=== PATIENT | male | born 2005 | race African-American/Black ===

== ENCOUNTER 2023-11-24 17:44 | Observation (INO) | payer OTHER ==
--- NOTE | 2023-11-24 18:17 | ED ---
Syncope HPI - General Stated Complaint: Dizziness Time Seen by Provider: 11/24/23 17:49 Source: RN notes reviewed, old records reviewed Mode of arrival: EMS Limitations: no limitations, language barrier - History of Present Illness Initial Comments: This is a 17-year-old male patient does not speak Taiwanese as a first language and coming in today with a severe syncopal event lightheadedness dizziness and multiple syncopal events while playing soccer today. Patient has had prior evaluation, patient states has had around 20 episodes of syncope in his life with no acute cause patient is here playing soccer for college, he has been here for a few months MD Complaint: loss of consciousness, collapsed (Multiple episodes of syncope) -: minutes(s) Prodromal Symptoms: none -: minutes(s) Witnessed: yes - by bystander, yes - by EMS Injuries Sustained Associated with Event: None Current Symptoms: lightheaded History: previous syncopal episode Context: during exertion - Related Data Home Medications Medication Instructions Recorded Confirmed No Known Home Medications 11/24/23 11/24/23 Allergies Allergy/AdvReac Type Severity Reaction Status Date / Time No Known Allergies Allergy Verified 11/24/23 19:27 Review of Systems ROS Statement: Those systems with pertinent positive or pertinent negative responses have been documented in the HPI. ROS Other: All systems not noted in ROS Statement are negative. General Exam General appearance: alert, in no apparent distress Head exam: Present: atraumatic, normocephalic, normal inspection Eye exam: Present: normal appearance, PERRL, EOMI. Absent: scleral icterus, conjunctival injection, periorbital swelling ENT exam: Present: normal exam, mucous membranes moist Neck exam: Present: normal inspection. Absent: tenderness, meningismus, lymphadenopathy Respiratory exam: Present: normal lung sounds bilaterally. Absent: respiratory distress, wheezes, rales, rhonchi, stridor Cardiovascular Exam: Present: regular rate, normal rhythm, normal heart sounds. Absent: systolic murmur, diastolic murmur, rubs, gallop, clicks GI/Abdominal exam: Present: soft, normal bowel sounds. Absent: distended, tenderness, guarding, rebound, rigid Extremities exam: Present: normal inspection, full ROM, normal capillary refill. Absent: tenderness, pedal edema, joint swelling, calf tenderness Back exam: Present: normal inspection Neurological exam: Present: alert, oriented X3, CN II-XII intact Psychiatric exam: Present: normal affect, normal mood Skin exam: Present: warm, dry, intact, normal color. Absent: rash Course Vital Signs 11/24/23 11/24/23 18:16 20:20 Temperature 98.5 F Pulse Rate 72 72 Respiratory 20 14 Rate Blood Pressure 113/62 110/60 O2 Sat by Pulse 100 100 Oximetry - Reevaluation(s) Reevaluation #1: 11/24/23 19:12 Medical records reviewed Reevaluation #2: 11/24/23 19:12 Patient symptoms remain unchanged, no recurrent syncope Reevaluation #3: 11/24/23 19:12 Patient informed of results and questions answered Reevaluation #4: Was pt. sent in by a medical professional or institution ([facility], [facility] [employer], urgent care, hospital, or fci...) When possible be specific @ -no Did you speak to anyone other than the patient for history (EMS, parent, family, police, friend...)? What history was obtained from this source @ -no Did you review nursing and triage notes (agree or disagree)? Why? @ -agree Are old charts reviewed (outside hosp., previous admission, EMS record, old EKG, old radiological studies, urgent care reports/EKG's, fci records)? Report findings @ -yes Differential Diagnosis (chest pain, altered mental status, abdominal pain women, abdominal pain men, vaginal bleeding, weakness, fever, dyspnea, syncope, headache, dizziness, GI bleed, back pain, seizure, CVA, palpatations, mental health, musculoskeletal)? @ -prior EKG interpreted by me (3pts min.). @ -yes X-rays interpreted by me (1pt min.). @ -no CT interpreted by me (1pt min.). @ -no U/S interpreted by me (1pt. min.). @ -no What testing was considered but not performed or refused? (CT, X-rays, U/S, labs)? Why? @ -none What meds were considered but not given or refused? Why? @ -none Did you discuss the management of the patient with other professionals (professionals i.e. [facility], [employer] [employer], lab, RT, psych nurse, social science teacher, maintenance service technician, teacher, special officer, vocational case manager)? Give summary @ -no Was smoking cessation discussed for >3mins.? @ -no Was critical care preformed (if so, how long)? @ -yes31 Were there social determinants of health that impacted care today? How? (Homelessness, low income, unemployed, alcoholism, drug addiction, transportation, low edu. Level, literacy, decrease access to med. care, fci, rehab)? @ -none Was there de-escalation of care discussed even if they declined (Discuss DNR or withdrawal of care, Hospice)? DNR status @ -no What co-morbidities impacted this encounter? (DM, HTN, Smoking, COPD, CAD, Cancer, CVA, ARF, Chemo, Hep., AIDS, mental health diagnosis, sleep apnea, morbi d obesity)? @ -none Was patient admitted / discharged? Hospital course, mention meds given and rout e, prescriptions, significant lab abnormalities, going to OR and other pertinent info. @ - 17 male will be admitted for syncopal evaluation, concern for EKG changes Admitted Undiagnosed new problem with uncertain prognosis? @ -no Drug Therapy requiring intensive monitoring for toxicity (Heparin, Nitro, Insulin, Cardizem)? @ -no Were any procedures done? @ -no Diagnosis/symptom? @ -recurrent syncope Acute, or Chronic, or Acute on Chronic? @ -Acute Uncomplicated (without systemic symptoms) or Complicated (systemic symptoms)? @ -Complicated Side effects of treatment? @ -no Exacerbation, Progression, or Severe Exacerbation? @ -exacerbation Poses a threat to life or bodily function? How? (Chest pain, USA, KS, pneumonia, PE, COPD, DKA, ARF, appy, cholecystitis, CVA, Diverticulitis, Homicidal, Suicidal, threat to staff... and all critical care pts) @ -yes syncope Reevaluation #5: Differential Syncope: Valvular disease, hypertrophic cardiomyopathy, pulmonary embolism, tamponade, tachycardia, bradycardia, KS, hypovolemia, hemorrhage, dissection, anemia, in tracranial hemorrhage, seizure, hypoglycemia, carbon monoxide poisoning, this is not meant to be an all-inclusive list. - Consultations Consultation #1: Spoke with todd who agrees to admit this patient EKG Findings - EKG Comments: EKG Findings:: EKG is sinus 73 [place] 192 QRS 86 QTc 381 - EKG Results: EKG: interpreted by NATALIED Medical Decision Making - Medical Decision Making 17 male will be admitted for syncopal evaluation, concern for EKG changes - Lab Data Result diagrams: 11/26/23 04:38 11/26/23 04:38 Lab Results 11/24/23 11/24/23 11/24/23 Range/Units 18:23 18:23 18:23 WBC 6.8 (4.0-11.0) k/uL RBC 4.75 (4.30-5.90) m/uL Hgb 13.2 (13.0-17.5) gm/dL Hct 43.0 (39.0-53.0) % MCV 90.6 (80.0-100.0) fL MCH 27.9 (25.0-35.0) pg MCHC 30.8 L (31.0-37.0) g/dL RDW 11.7 (11.5-15.5) % Plt Count 240 (150-450) k/uL MPV 7.5 Neutrophils % 74 % Lymphocytes % 14 % Monocytes % 8 % Eosinophils % 2 % Basophils % 0 % Neutrophils # 5.0 (1.3-7.7) k/uL Lymphocytes # 0.9 L (1.0-4.8) k/uL Monocytes # 0.5 (0-1.0) k/uL Eosinophils # 0.2 (0-0.7) k/uL Basophils # 0.0 (0-0.2) k/uL Hypochromasia Slight PT 12.2 (10.0-12.5) sec INR 1.1 (<1.2) APTT 20.1 L (22.0-30.0) sec D-Dimer 0.59 (<0.60) mg/L FEU Sodium 139 (137-145) mmol/L Potassium 4.1 (3.5-5.1) mmol/L Chloride 103 (98-107) mmol/L Carbon Dioxide 25 (22-30) mmol/L Anion Gap 11 mmol/L BUN 8 L (9-20) mg/dL Creatinine 1.15 (0.66-1.25) mg/dL Est GFR (CKD-EPI)AfAm >90 (>60 ml/min/1.73 sqM) Est GFR (CKD-EPI)NonAf >90 (>60 ml/min/1.73 sqM) Glucose 84 (74-99) mg/dL Plasma Lactic Acid Abdulaziz (0.7-2.0) mmol/L Calcium 9.9 (8.4-10.2) mg/dL Phosphorus 3.1 (2.5-4.5) mg/dL Magnesium 1.7 (1.6-2.3) mg/dL Total Bilirubin 2.8 H (0.2-1.3) mg/dL AST 43 (17-59) U/L ALT 24 (4-49) U/L Alkaline Phosphatase 82 (38-126) U/L Troponin I (0.000-0.034) ng/mL NT-Pro-B Natriuret Pep <20 pg/mL Total Protein 7.6 (6.3-8.2) g/dL Albumin 4.6 (3.5-5.0) g/dL TSH 0.607 (0.465-4.680) mIU/L 11/24/23 11/24/23 Range/Units 18:23 18:23 WBC (4.0-11.0) k/uL RBC (4.30-5.90) m/uL Hgb (13.0-17.5) gm/dL Hct (39.0-53.0) % MCV (80.0-100.0) fL MCH (25.0-35.0) pg MCHC (31.0-37.0) g/dL RDW (11.5-15.5) % Plt Count (150-450) k/uL MPV Neutrophils % % Lymphocytes % % Monocytes % % Eosinophils % % Basophils % % Neutrophils # (1.3-7.7) k/uL Lymphocytes # (1.0-4.8) k/uL Monocytes # (0-1.0) k/uL Eosinophils # (0-0.7) k/uL Basophils # (0-0.2) k/uL Hypochromasia PT (10.0-12.5) sec INR (<1.2) APTT (22.0-30.0) sec D-Dimer (<0.60) mg/L FEU Sodium (137-145) mmol/L Potassium (3.5-5.1) mmol/L Chloride (98-107) mmol/L Carbon Dioxide (22-30) mmol/L Anion Gap mmol/L BUN (9-20) mg/dL Creatinine (0.66-1.25) mg/dL Est GFR (CKD-EPI)AfAm (>60 ml/min/1.73 sqM) Est GFR (CKD-EPI)NonAf (>60 ml/min/1.73 sqM) Glucose (74-99) mg/dL Plasma Lactic Acid Abdulaziz 2.6 H* (0.7-2.0) mmol/L Calcium (8.4-10.2) mg/dL Phosphorus (2.5-4.5) mg/dL Magnesium (1.6-2.3) mg/dL Total Bilirubin (0.2-1.3) mg/dL AST (17-59) U/L ALT (4-49) U/L Alkaline Phosphatase (38-126) U/L Troponin I 0.019 (0.000-0.034) ng/mL NT-Pro-B Natriuret Pep pg/mL Total Protein (6.3-8.2) g/dL Albumin (3.5-5.0) g/dL TSH (0.465-4.680) mIU/L Critical Care Time Critical Care Time: Yes Total Critical Care Time: 31 Disposition Clinical Impression: Syncope Disposition: ADMITTED IP TO THIS HOSP Condition: Stable Is patient prescribed a controlled substance at d/c from ED?: No Time of Disposition: 19:10
[2023-11-24 18:50] LABS: Basophils % (A) 0 %; Eosinophils # (A) 0.2 k/uL (0-0.7); Eosinophils % (A) 2 %; HGB 13.2 gm/dL (13.0-17.5); Hypochromasia Slight; Lymphocytes # (A) 0.9 k/uL (1.0-4.8); Lymphocytes % (A) 14 %; MCH 27.9 pg (25.0-35.0); MCHC 30.8 g/dL (31.0-37.0); MCV 90.6 fL (80.0-100.0); Mean Platelet Volume 7.5; Monocytes # (A) 0.5 k/uL (0-1.0); Monocytes % (A) 8 %; Neutrophils % (A) 74 %; Platelet Count 240 k/uL (150-450); RBC 4.75 m/uL (4.30-5.90); RDW 11.7 % (11.5-15.5); WBC 6.8 k/uL (4.0-11.0)
[2023-11-24 19:00] LABS: ALT 24 U/L (4-49); African American GFR (CKD) >90 (>60 ml/min/1.73 sqM); Albumin 4.6 g/dL (3.5-5.0); Anion Gap 11 mmol/L; Blood Urea Nitrogen 8 mg/dL (9-20); Calcium 9.9 mg/dL (8.4-10.2); Carbon Dioxide 25 mmol/L (22-30); Chloride 103 mmol/L (98-107); Glucose 84 mg/dL (74-99); Non-African American GFR(CKD) >90 (>60 ml/min/1.73 sqM); Sodium 139 mmol/L (137-145); Total Bilirubin 2.8 mg/dL (0.2-1.3); Total Protein 7.6 g/dL (6.3-8.2)
[2023-11-24 19:04] LABS: AST 43 U/L (17-59); Alkaline Phosphatase 82 U/L (38-126); Magnesium 1.7 mg/dL (1.6-2.3); Phosphorus 3.1 mg/dL (2.5-4.5); Potassium 4.1 mmol/L (3.5-5.1)
[2023-11-24 19:07] LABS: NT-Pro-B-Type Natriuretic Pept <20 pg/mL
[2023-11-24] MEDS ORDERED: NITROGLYCERIN SL TABS 0.4 MG TAB SUBLINGUAL PRN (19:09)
[2023-11-24 19:19] LABS: INR 1.1 (<1.2); Prothrombin Time 12.2 sec (10.0-12.5)
[2023-11-24 19:21] LABS: Partial Thromboplastin Time 20.1 sec (22.0-30.0)
[2023-11-24] MEDS: SODIUM CHLORIDE 0.9% 1,000 ML IV STA (20:19)
--- NOTE | 2023-11-24 22:23 | P.HPIM ---
History of Present Illness H&P Date: 11/24/23 Chief Complaint: Syncope Patient is a 17 year old male with PMH of multiple syncopal episodes presented to the ED with syncope. 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 He regained consciousness a couple minutes after and had another syncopal episode which is when he was brought into the ER. He mentions of having foul smell and feeling lightheaded before these episodes. He also reports having epistaxis sometimes. He states having such episodes multiple times before and they all happened when he is playing soccer. Patient reports ocassional chest pressure-like discomfort with playing soccer accompanied by SOB. Reports being admitted in a hospital in [facility] a couple years ago due to similar symptoms and at the time they did a full workup but were not able to find anything. Denies family history of heart disease. Denies fever, chills, abdominal pain, nausea, vomiting, blood in the stool or urine. Vitals: T 98.5 F, P 72 bpm, RR 20, BP 113/62, O2 sat 100% on room air Labs: Hemoglobin 13.2, D-dimer 0.59, APTT 20.1, lactic acid 2.6, total bilirubin 2.8, troponin 0.019, proBNP < 20, TSH 0.607. EKG sinus rhythm, ventricular rate 65 bpm, QTc 370 ms ED documentation reviewed and case discussed with ED provider. In the ED he was treated with 0.9 normal saline nitroglycerin sublingual tablet. Review of systems: Pertinent positives and negatives as discussed in HPI, a complete review of systems was performed and all other systems are negative. PMH:None PSH:None FMH:None Allergies:None Social history: Tobacco: Denies use Alcohol: Denies use Recreational drugs: Denies use Travel: Traveled from [facility] to [facility] Sick contacts: None Occupation: College student Physical examination: Vital signs reviewed General: non toxic, no distress, appears at stated age, normal bmi Derm: no unusual rashes/lesions, warm Head: atraumatic, normocephalic, symmetric Eyes: EOMI, anicteric sclera, ENT: Nose and ears atraumatic Cardiovascular: S1S2 reg, no murmur, no edema Lungs: CTA bilateral, no rhonchi, no rales, no accessory muscle use Abdominal: soft, nontender to palpation, no guarding Ext: muscle strength 5 out of 5 in all 4 extremities grossly, no gross muscle atrophy, no contractures, Neuro: CN II-XI grossly intact, no gross focal neuro deficits Psych: Alert, oriented, appropriate affect Assessment/Plan: The patient is a 17-year-old male with past medical history of multiple syncopal events who presented to the ED with syncope after playing soccer and he is being admitted for further evaluation of syncopal episodes. #. Syncope, concerning for cardiac etiology Reporting exertional chest discomfort and SOB Troponin 0.019, proBNP < 20, D-dimer 0.59 EKG sinus rhythm, ventricular rate 65 bpm, QTc 370 ms Continue nitroglycerin 0.4 mg sublingual Q5M as needed Lipid panel ordered in the ED Initiate ASA and Lipitor Echo ordered Continue to trend troponin Telemetry monitoring Cardiology consulted #. Lactic acidosis, unclear etiology C/w IVFs NS 100 ml/hr and trend for resolution #. Elevated Total bilirubin Obtain direct and indirect bilirubin levels, suspecting gilbert syndrome F: None E: Replete as required N: Heart healthy diet A: Ambulatory DVT prophylaxis: SCD The patient is admitted with an anticipated less than 2 midnight stay for evaluation of syncope CODE STATUS: Full code Discussed with: Patient Anticipated discharge place: Home Past Medical History Past Medical History: No Reported History History of Any Multi-Drug Resistant Organisms: None Reported Past Surgical History: No Surgical Hx Reported Past Psychological History: No Psychological Hx Reported Smoking Status: Never smoker Past Alcohol Use History: None Reported Past Drug Use History: None Reported Medications and Allergies Home Medications Medication Instructions Recorded Confirmed Type No Known Home Medications 11/24/23 11/24/23 History Allergies Allergy/AdvReac Type Severity Reaction Status Date / Time No Known Allergies Allergy Verified 11/24/23 19:27 Physical Exam Vitals: Vital Signs Temp Pulse Resp BP Pulse Ox 11/24/23 20:20 72 14 110/60 100 11/24/23 18:16 98.5 F 72 20 113/62 100 Intake and Output 11/24/23 11/24/23 11/24/23 06:59 14:59 22:59 Other: Weight 63.503 kg Results CBC & Chem 7: 11/24/23 18:23 11/24/23 18:23 Labs: Abnormal Lab Results - Last 24 Hours (Table) 11/24/23 11/24/23 11/24/23 Range/Units 18:23 18:23 18:23 MCHC 30.8 L (31.0-37.0) g/dL Lymphocytes # 0.9 L (1.0-4.8) k/uL APTT 20.1 L (22.0-30.0) sec BUN 8 L (9-20) mg/dL Plasma Lactic Acid Abdulaziz (0.7-2.0) mmol/L Total Bilirubin 2.8 H (0.2-1.3) mg/dL 11/24/23 Range/Units 18:23 MCHC (31.0-37.0) g/dL Lymphocytes # (1.0-4.8) k/uL APTT (22.0-30.0) sec BUN (9-20) mg/dL Plasma Lactic Acid Abdulaziz 2.6 H* (0.7-2.0) mmol/L Total Bilirubin (0.2-1.3) mg/dL
[2023-11-25] MEDS: ASPIRIN 325 MG TAB PO STA (01:29)
[2023-11-25] MEDS: ATORVASTATIN 80 MG TAB PO SCH (01:29)
[2023-11-25] MEDS: SODIUM CHLORIDE 0.9% 1,000 ML IV ONE (01:29)
[2023-11-25] MEDS: SODIUM CHLORIDE 0.9% 1,000 ML IV SCH (01:32)
[2023-11-25 10:08] LABS: HCT 38.7 % (39.0-53.0); HGB 12.5 gm/dL (13.0-17.5); MCH 28.9 pg (25.0-35.0); MCHC 32.2 g/dL (31.0-37.0); MCV 89.9 fL (80.0-100.0); Mean Platelet Volume 8.5; Platelet Count 215 k/uL (150-450); RBC 4.31 m/uL (4.30-5.90); WBC 5.2 k/uL (4.0-11.0)
[2023-11-25 10:14] LABS: Bilirubin, Conjugated 0.37 mg/dL (0.20-0.40); Bilirubin,Unconjugated 1.33 mg/dL (0.20-1.00); Total Bilirubin 1.7 mg/dL (0.3-1.2)
[2023-11-25 10:17] LABS: ALT 20 U/L (4-49); AST 31 U/L (17-59); African American GFR (CKD) >90 (>60 ml/min/1.73 sqM); Albumin 3.6 g/dL (3.5-5.0); Albumin/Globulin Ratio 1.5; Alkaline Phosphatase 72 U/L (38-126); Anion Gap 2 mmol/L; Blood Urea Nitrogen 13 mg/dL (9-20); Calcium 9.1 mg/dL (8.4-10.2); Carbon Dioxide 26 mmol/L (22-30); Chloride 110 mmol/L (98-107); Globulin 2.4 g/dL; Glucose 83 mg/dL (74-99); Magnesium 1.9 mg/dL (1.6-2.3); Non-African American GFR(CKD) >90 (>60 ml/min/1.73 sqM); Potassium 4.2 mmol/L (3.5-5.1); Sodium 138 mmol/L (137-145); Total Bilirubin 1.8 mg/dL (0.2-1.3)
[2023-11-25 10:48] LABS: Chol/HDL Ratio 2.68 Ratio; LDL Cholesterol,Calculated 73.2 mg/dL (0.0-131.0)
[2023-11-25] MEDS: ASPIRIN 81 MG PO SCH (10:52)
--- NOTE | 2023-11-25 12:14 | P.CRDCN ---
History of Present Illness Consult date: 11/25/23 Reason for Consult (text): Syncope History of present illness: This is a 17-year-old male here from [facility] on scholarship at [employer]. He presen morro due to a syncopal episode while playing soccer. He states before he had the episode he told his friend that he did not feel good. No chest pain no chest pressure, no shortness of breath. He also gives history that over the past 3 to 4 years he has had 20 episodes of passing out while playing soccer. He states he spent a week in the hospital 2 years ago in [facility] but denies having echocardiogram, stress test cardiac catheterization or event monitor. He denies any medical history. He is a non-smoker, no alcohol abuse. He denies any family history of coronary artery disease and no history of sudden cardiac . Blood pressure 98/60, heart rate 52, pulse ox 99% on room air. Patient apparently was told that he needed to go to the hospital to be checked. He does not seem to be concerned about these incidents of syncope. We are assuming that patient will require a clearance to go back to playing soccer. Discussed with patient that a cardiac workup could be done as an outpatient but will take some time. Patient's attending is planning to keep the patient for EEG on Sunday b ecause apparently he had a sense of foul smell before the syncopal episode. Thus, we will order stress test and echocardiogram for Sunday. EKG: Sinus bradycardia with no acute ST-T wave changes Chest x-ray: No acute process Laboratory studies: Troponin negative x 3. Initial lactic acid 2.6 followed by 1, TSH 0.607, D-dimer 0.59, sodium 139, potassium 4.1, BUN 8 creatinine 1.15. WBC 6.8, hemoglobin 13.2. Home cardiac medications: None Review Of Systems: At the time of my exam: CONSTITUTIONAL: Denies fever or chills. HEENT: Denies blurred vision, vision changes, or eye pain. Denies hemoptysis CARDIOVASCULAR: Denies chest pain. Denies orthopnea. Denies PND. Denies palpitations RESPIRATORY: Denies shortness of breath. GASTROINTESTINAL: Denies abdominal pain. Denies nausea or vomiting. HEMATOLOGIC: Denies bleeding disorders. GENITOURINARY: Denies any blood in urine. SKIN: Denies puritis. Denies rash. Physical examination: Gen: This is a thin 17-year-old black male in no acute distress VS: reviewed HEENT: Head is atraumatic, normocephalic. Pupils equal, round. Sclerae is anicteric. NECK: Supple. No JVD. LUNGS: Clear to auscultation. No wheezes or rhonchi. No intercostal retr actions. HEART: Regular rate and rhythm. No murmur. ABDOMEN: Soft No tenderness. EXTREMITIES: No pedal edema. No calf tenderness. NEUROLOGICAL: Patient is awake, alert and oriented x3. Assessment: Syncopal episode with history of 20 episodes over the past 3 to 4 years Plan: Obtain exercise stress test on Sunday looking at patient's catecholamine response to exercise, monitor for arrhythmia. Obtain 2-D echocardiogram and Doppler study to assess cardiac structure and function Further recommendations to follow based upon clinical course Thank you kindly for this consultation. Nurse practitioner note has been reviewed, I agree with documented findings and plan of care. Patient was seen and examined. Past Medical History Past Medical History: No Reported History History of Any Multi-Drug Resistant Organisms: None Reported Past Surgical History: No Surgical Hx Reported Past Psychological History: No Psychological Hx Reported Smoking Status: Never smoker Past Alcohol Use History: None Reported Past Drug Use History: None Reported Medications and Allergies Home Medications Medication Instructions Recorded Confirmed Type No Known Home Medications 11/24/23 11/24/23 History Allergies Allergy/AdvReac Type Severity Reaction Status Date / Time No Known Allergies Allergy Verified 11/24/23 19:27 Physical Exam Vitals: Vital Signs Temp Pulse Pulse Resp BP BP BP 11/25/23 07:00 97.6 F 52 L 16 98/60 11/25/23 01:25 97.4 F L 58 L 16 110/58 11/24/23 21:17 97.5 F L 57 L 16 114/69 11/24/23 20:20 72 14 110/60 11/24/23 18:16 98.5 F 72 20 113/62 Pulse Ox 11/25/23 07:00 99 11/25/23 01:25 98 11/24/23 21:17 100 11/24/23 20:20 100 11/24/23 18:16 100 Intake and Output 11/24/23 11/25/23 11/25/23 22:59 06:59 14:59 Other: # Voids 1 1 Weight 63.503 kg Results 11/25/23 09:25 11/25/23 09:25 Cardiac Enzymes 11/24/23 11/24/23 11/24/23 Range/Units 18:23 18:23 21:52 AST 43 (17-59) U/L Troponin I 0.019 0.027 (0.000-0.034) ng/mL 11/25/23 Range/Units 00:07 AST (17-59) U/L Troponin I 0.024 (0.000-0.034) ng/mL Coagulation 11/24/23 Range/Units 18:23 PT 12.2 (10.0-12.5) sec APTT 20.1 L (22.0-30.0) sec CBC 11/24/23 Range/Units 18:23 WBC 6.8 (4.0-11.0) k/uL RBC 4.75 (4.30-5.90) m/uL Hgb 13.2 (13.0-17.5) gm/dL Hct 43.0 (39.0-53.0) % Plt Count 240 (150-450) k/uL Comprehensive Metabolic Panel 11/24/23 Range/Units 18:23 Sodium 139 (137-145) mmol/L Potassium 4.1 (3.5-5.1) mmol/L Chloride 103 (98-107) mmol/L Carbon Dioxide 25 (22-30) mmol/L BUN 8 L (9-20) mg/dL Creatinine 1.15 (0.66-1.25) mg/dL Glucose 84 (74-99) mg/dL Calcium 9.9 (8.4-10.2) mg/dL AST 43 (17-59) U/L ALT 24 (4-49) U/L Alkaline Phosphatase 82 (38-126) U/L Total Protein 7.6 (6.3-8.2) g/dL Albumin 4.6 (3.5-5.0) g/dL Current Medications Generic Name Dose Route Start Last Admin Trade Name Freq PRN Reason Stop Dose Admin Aspirin 81 mg 11/25/23 09:00 Aspirin 81 Mg PO DAILY CHIOMA Atorvastatin Calcium 80 mg 11/25/23 00:15 11/25/23 01:29 Atorvastatin 80 Mg Tab PO 80 mg HS CHIOMA Administration Sodium Chloride 1,000 mls @ 100 mls/hr 11/25/23 00:15 11/25/23 01:32 Saline 0.9% IV 100 mls/hr .Q10H CHIOMA Administration Nitroglycerin 0.4 mg 11/24/23 19:09 Nitroglycerin Sl Tabs 0.4 Mg Tab SUBLINGUAL Q5M PRN Chest Pain Intake and Output 11/24/23 11/25/23 11/25/23 22:59 06:59 14:59 Other: # Voids 1 1 Weight 63.503 kg 11/24/23 18:23 11/24/23 18:23
[2023-11-25 14:31] LABS: Appearance,Urine Clear (Clear); Bilirubin,Urine Negative (Negative); Blood,Urine Negative (Negative); Color,Urine Colorless; Glucose,Urine (UA) Negative (Negative); Ketones,Urine Negative (Negative); Leukocyte Esterase,Urine Negative (Negative); Nitrite,Urine Negative (Negative); Protein,Urine Negative (Negative); Specific Gravity,Urine 1.018 (1.001-1.035); Urobilinogen,Urine <2.0 mg/dL (<2.0)
[2023-11-25 14:51] LABS: Amphetamine Screen,Urine Not Detected (NotDetected); Barbiturate Screen,Urine Not Detected (NotDetected); Benzodiazepines Screen,Urine Not Detected (NotDetected); Cocaine Screen,Urine Not Detected (NotDetected); Methadone Screen, Urine Not Detected (NotDetected); Opiate Screen,Urine Not Detected (NotDetected); Oxycodone Screen, Urine Not Detected (NotDetected); Phencyclidine Screen,Urine Not Detected (NotDetected); Tricyclic Antidepressant,Urine Not Detected (NotDetected); Urn Cannabinoid Scrn Not Detected (NotDetected)
--- NOTE | 2023-11-25 17:22 | P.PN ---
Subjective Progress Note Date: 11/25/23 Hospital course: Patient is a very pleasant 17-year-old male with a past medical history of recurrent syncopal episodes of unclear etiology. He presented to the emergency department on 11/24/2023 with a chief complaint of syncopal episode. 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 Patient reports approximately 20 syncopal episodes over the past 4 years and states all episodes began with a foul smell followed by feeling of lightheadedness and then syncope. No reports of convulsions or shaking activity, no biting of tongue and no involuntary loss of bowel or bladder reported from any of these events. Patient did report occasional chest pressure and shortness of breath with overexertion when playing soccer currently denies any complaints. Patient denies family history of heart disease or sudden cardiac before the age of 50. Upon arrival to our facility, patient underwent evaluation in the emergency department. Vital signs upon arrival show blood pressure 113/62, heart rate 72, respiratory rate 20, temp 98.5 F, and SpO2 100% on room air. EKG completed showing normal sinus rhythm at [address] depression in lead III and J-point elevation in leads I, aVL, V2 and V3. Completed and reviewed. CBC showing a low MCHC of 30.8 otherwise normal findings. Coagulation profile showing a low PTT of 20.1 otherwise normal findings. D-dimer was negative at 0.59. BMP unremarkable. Initial lactic acid 2.6. Magnesium 1.7. Total bili elevated at 2.8. Liver profile otherwise normal findings. Troponin 0.019. proBNP less than 20. TSH 0.607. Patient admitted under our services with consultation to cardiology. Troponins were trended resulting at 0.019, 0.027, 0.024. Repeat lactate showing resolution of lactic acidosis with lactate of 1.0. Conjugated bilirubin 0.37 and unconjugated bilirubin of 1.33. Physical exam: Patient was seen and fully evaluated at bedside. He currently denies having any chest pain or discomfort. Patient expresses feeling slight anxiety as he has a soccer game this week does not want to miss his game and mess up his scholarship. Discussed with patient need for further testing prior to giving medical clearance to play soccer. Patient verbalized understanding and denies having any other questions, needs, complaints, or concerns at this time. Vital signs reviewed and stable. General: Nontoxic, no distress and appears stated age. Derm: Skin warm and dry, normal coloration for ethnicity. Head: Atraumatic, normocephalic and symmetric. Eyes: EOM's intact, no lid lag, and anicteric sclera Mouth: no lip lesions, mucus membranes moist Cardiovascular: regular rate and rhythm with normal S1S2, no murmur, positive posterior tibial pulses bilaterally, and cap refill < 2 seconds. Lungs: Respirations even, regular, and unlabored on room air. Lungs CTA bi laterally, no rhonchi, no rales, no wheezing, and no accessory muscle usage. Abdominal: soft, nontender to palpation, no guarding, no appreciable organomegaly Ext: ROM intact. No gross muscle atrophy, no edema, no contractures Neuro: Speech clear, face symmetrical and CN II-XII grossly intact with no noted focal neuro deficits Psych: Alert and oriented to person, place, time, and situation. Appropriate and pleasant affect. Assessment and Plan of Care: Recurrent syncopal episodes Lactic acidosis Exertional chest pain and shortness of breath -Patient reports syncopal episodes beginning in 2019 and states approximately 20 episodes or more over the past 4 years. -Rule out cardiac etiology versus possible seizure as patient reports each episode began with foul smell. -Obtain echocardiogram -EEG to be completed -Cardiology following, discussed with Dr. Kessler stating will plan for stress test tomorrow. -Troponins were trended resulting at 0.019, 0.027, 0.024. Lipid profile unremarkable. -Repeat lactate showing resolution of lactic acidosis with lactate of 1.0. -Patient to remain on continuous telemetry monitoring. -Continue daily aspirin 81 mg daily and atorvastatin 80 mg nightly. -Order placed for urine drug screen -Order placed for chest x-ray. Hyperbilirubinemia -Improving from initial 2.8 down to 1.8 this morning with Conjugated bilirubin 0.37 and unconjugated bilirubin of 1.33.. -Unclear etiology, will continue to monitor. Data and imaging reviewed: -Vital signs reviewed. Blood pressure 98/60, heart rate 52, respiratory rate 16, temp 97.6 F, and SpO2 of 99% on room air. -Repeat morning EKG showing sinus bradycardia 48 bpm with mild J-point elevation in leads I and V2 through V6 upon personal review and interpretation. -Morning labs reviewed. Troponins were trended resulting at 0.019, 0.027, 0.024. Repeat lactate showing resolution of lactic acidosis with lactate of 1.0. CBC showing mild normocytic anemia with hemoglobin of 12.5. BMP showing mild hyperchloremia with chloride of 110 otherwise normal findings. Liver profile showing improvement of hyperbilirubinemia from previous 2.8 down to 1.8 this morning with conjugated bilirubin 0.37 and unconjugated bilirubin of 1.33. Lipid profile was unremarkable. CODE STATUS: Full code DVT prophylaxis: SCDs Anticipated discharge date: Pending clinical course Anticipated discharge place: Home Patient was seen independently by Nurse Pracitioner. This document was prepared using mediafeedia dictation software. Please allow for errors in internal combustion engine assembler, while rare they do occur. . I reviewed the documentation as provided by the ALYSSIA above, who is the original author of this note. I agree with the documented assessment and plan, with the following changes: none Objective - Vital Signs Vital signs: Vital Signs Temp 97.6 F 11/25/23 07:00 Pulse 52 L 11/25/23 07:00 Resp 16 11/25/23 07:00 BP 98/60 11/25/23 07:00 Pulse Ox 99 11/25/23 07:00 FiO2 Intake & Output 11/24/23 11/25/23 11/25/23 18:59 06:59 18:59 Weight 63.503 kg 63.503 kg Other: # Voids 1 - Labs CBC & Chem 7: 11/25/23 09:25 11/25/23 09:25 Labs: Abnormal Lab Results - Last 24 Hours (Table) 11/24/23 11/24/23 11/24/23 Range/Units 18:23 18:23 18:23 MCHC 30.8 L (31.0-37.0) g/dL Lymphocytes # 0.9 L (1.0-4.8) k/uL APTT 20.1 L (22.0-30.0) sec BUN 8 L (9-20) mg/dL Plasma Lactic Acid Abdulaziz (0.7-2.0) mmol/L Total Bilirubin 2.8 H (0.2-1.3) mg/dL 11/24/23 11/24/23 Range/Units 18:23 21:52 MCHC (31.0-37.0) g/dL Lymphocytes # (1.0-4.8) k/uL APTT (22.0-30.0) sec BUN (9-20) mg/dL Plasma Lactic Acid Abdulaziz 2.6 H* 2.3 H* (0.7-2.0) mmol/L Total Bilirubin (0.2-1.3) mg/dL
--- NOTE | 2023-11-25 17:36 | XR ---
EXAMINATION TYPE: XR chest 1V portable DATE OF EXAM: 11/25/2023 5:32 PM CLINICAL INDICATION: Male, 17 years old with history of chest pain; [facility] COMPARISON: None TECHNIQUE: XR chest 1V portable Frontal view of the chest. FINDINGS: Lungs/Pleura: There is no evidence of pleural effusion, focal consolidation, or pneumothorax. Pulmonary vascularity: Unremarkable. Heart/mediastinum: Cardiomediastinal silhouette is unremarkable. Musculoskeletal: No acute osseous pathology. IMPRESSION: No acute cardiopulmonary disease/process. [facility], , 11/25/2023 5:34 PM
[2023-11-26 08:52] LABS: HCT 38.4 % (39.6-50.0); HGB 12.1 g/dL (13.0-17.0); MCH 28.3 pg (27.0-32.0); MCHC 31.5 g/dL (32.0-37.0); MCV 89.7 FL (80.0-97.0); Mean Platelet Volume 10.4 FL (9.5-12.2); NRBC Per 100 WBC 0 X 10*3/uL (0.00-0.01); Platelet Count 241 X 10*3/uL (140-440); RBC 4.28 X 10*6/uL (4.40-5.60); RDW 11.7 % (11.5-14.5); WBC 5.75 X 10*3/uL (4.50-10.00)
[2023-11-26 08:54] LABS: ALT 21 U/L (10-49); AST 25 U/L (14-35); Albumin/Globulin Ratio 1.74 Ratio (1.60-3.17); Alkaline Phosphatase 100 U/L (41-126); BUN/Creat Ratio 9.56 Ratio (12.00-20.00); Blood Urea Nitrogen 8.6 mg/dL (9.0-27.0); Calcium 8.8 mg/dL (8.7-10.3); Chloride 108 mmol/L (96-109); Globulin 2.3 g/dL (1.6-3.3); Glucose 94 mg/dL (70-110); Magnesium 1.8 mg/dL (1.5-2.4); Potassium 4.1 mmol/L (3.5-5.5); Sodium 141 mmol/L (135-145); Total Bilirubin 1.2 mg/dL (0.3-1.2); Total Protein 6.3 g/dL (6.2-8.2)
--- NOTE | 2023-11-26 11:31 | P.PN ---
Subjective HISTORY OF PRESENT ILLNESS: This is a 17-year-old male here from [facility] on scholarship at [employer]. He presented due to a syncopal episode while playing soccer. He states before he had the episode he told his friend that he did not feel good. No chest pain no chest pressure, no shortness of breath. He also gives history that over the past 3 to 4 years he has had 20 episodes of passing out while playing soccer. He states he spent a week in the hospital 2 years ago in [facility] but denies having echocardiogram, stress test cardiac catheterization or event monitor. He denies any medical history. He is a non-smoker, no alcohol abuse. He denies any family history of coronary artery disease and no history of sudden cardiac . Blood pressure 98/60, heart rate 52, pulse ox 99% on room air. Patient apparently was told that he needed to go to the hospital to be checked. He does not seem to be concerned about these incidents of syncope. We are assuming that patient will require a clearance to go back to playing soccer. Discussed with patient that a cardiac workup could be done as an outpatient but will take some time. Patient's attending is planning to keep the patient for EEG on Sunday because apparently he had a sense of foul smell before the syncopal episode. Thus, we will order stress test and echocardiogram for Sunday. EKG: Sinus bradycardia with no acute ST-T wave changes Chest x-ray: No acute process Laboratory studies: Troponin negative x 3. Initial lactic acid 2.6 followed by 1, TSH 0.607, D-dimer 0.59, sodium 139, potassium 4.1, BUN 8 creatinine 1.15. WBC 6.8, hemoglobin 13.2. Home cardiac medications: None 11/26/2023 Patient examined this morning at the bedside. Patient currently denies chest pain or pressure. He denies shortness of breath. Vital signs are stable. PHYSICAL EXAM: VITAL SIGNS: Reviewed. GENERAL: Well-developed in no acute distress. NECK: Supple. No JVD or thyromegaly LUNGS: Respirations even and unlabored. Lungs essentially clear to auscultation bilaterally. HEART: Regular rate and rhythm. S1 and S2 heard. EXTREMITIES: Normal range of motion. No clubbing or cyanosis. Peripheral pulses intact. No lower extremity edema ASSESSMENT: Recurrent syncope with reported 20 episodes over past 3-4 years, etiology unclear PLAN: 2D echo ordered. Await results. Continue telemetry monitoring Patient to undergo exercise stress test this morning If negative, consider loop recorder insertion Further recommendations pending patient course Nurse practitioner note has been reviewed by physician. Signing provider agrees with the documented findings, assessment, and plan of care documented by WEBSPHERE COMMERCE ARCHITECT as a scribe. Objective - Vital Signs Vital signs: Vital Signs Temp 97.6 F 11/26/23 07:10 Pulse 50 L 11/26/23 07:10 Resp 16 11/26/23 07:10 BP 99/50 11/26/23 07:10 Pulse Ox 100 11/26/23 07:10 FiO2 Intake & Output 11/25/23 11/26/23 11/26/23 18:59 06:59 18:59 Other: # Voids 2 2 - Labs CBC & Chem 7: 11/26/23 04:38 11/26/23 04:38 Labs: Abnormal Lab Results - Last 24 Hours (Table) 11/26/23 11/26/23 Range/Units 04:38 04:38 RBC 4.28 L (4.40-5.60) X 10*6/uL Hgb 12.1 L (13.0-17.0) g/dL Hct 38.4 L (39.6-50.0) % MCHC 31.5 L (32.0-37.0) g/dL BUN 8.6 L (9.0-27.0) mg/dL BUN/Creatinine Ratio 9.56 L (12.00-20.00) Ratio
--- NOTE | 2023-11-26 13:10 | CA ---
Exercise Stress Test Report Name: Sudhakar Lozada Exam Date: 11/26/2023 12:07 Exam Location: [place] Stress Ht (in): 68 Wt (lb): 140 BSA: 1.76 Ordering Phys: Danelle Krishnamurthy Referring Phys: ANSHU RESTREPO Technologist: Benny Marie Age: 17 Gender: M : 2005 Procedure CPT: Indications: catechol reponse, arrhthymia, go to MAX!! ICD-10 Codes: Patient History: syncope Medications: Meds past 24 hrs: Pretest Chest Pain: STRESS TEST Palomo Protocol Exercise Duration (min:sec): 21:[address] Depressions (mm): Angina Score: Harris Score: Resting HR (bpm): 56 Peak HR (bpm): 189 Resting BP (mmHg): 116 / 70 Peak BP (mmHg): 184 / 98 MPHR: 201 Target HR: 171 % MPHR: 94 METS: 19.3 Total Dose: Peak Dose: Atropine: Double Product: 77579 BP Response: Stress Termination: Reached target heart rate Stress Symptoms: No chest pain or symptoms Stress Summary: The patient's target heart rate was achieved ECG ANALYSIS Resting ECG: Sinus rhythm. Normal conduction. No arrhythmias. Normal repolarization. Stress ECG: No ECG evidence of ischemia with exercise. CONCLUSIONS 1. Excellent exercise tolerance 2. Normal electrocardiographic response to exercise with no evidence of stress-induced ischemia or arrhythmia Dr. Liyah Vanegas MD (Electronically Signed) Final Date: 26 November 2023 13:09
--- NOTE | 2023-11-26 15:40 | P.PN ---
Subjective Progress Note Date: 11/26/23 Hospital course: Patient is a very pleasant 17-year-old male with a past medical history of recurrent syncopal episodes of unclear etiology. He presented to the emergency department on 11/24/2023 with a chief complaint of syncopal episode. 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 Patient reports approximately 20 syncopal episodes over the past 4 years and states all episodes began with a foul smell followed by feeling of lightheadedness and then syncope. No reports of convulsions or shaking activity, no biting of tongue and no involuntary loss of bowel or bladder reported from any of these events. Patient did report occasional chest pressure and shortness of breath with overexertion when playing soccer currently denies any complaints. Patient denies family history of heart disease or sudden cardiac before the age of 50. Upon arrival to our facility, patient underwent evaluation in the emergency department. Vital signs upon arrival show blood pressure 113/62, heart rate 72, respiratory rate 20, temp 98.5 F, and SpO2 100% on room air. EKG completed showing normal sinus rhythm at [address] depression in lead III and J-point elevation in leads I, aVL, V2 and V3. Completed and reviewed. CBC showing a low MCHC of 30.8 otherwise normal findings. Coagulation profile showing a low PTT of 20.1 otherwise normal findings. D-dimer was negative at 0.59. BMP unremarkable. Initial lactic acid 2.6. Magnesium 1.7. Total bili elevated at 2.8. Liver profile otherwise normal findings. Troponin 0.019. proBNP less than 20. TSH 0.607. Patient admitted under our services with consultation to cardiology. Troponins were trended resulting at 0.019, 0.027, 0.024. Repeat lactate showing resolution of lactic acidosis with lactate of 1.0. Conjugated bilirubin 0.37 and unconjugated bilirubin of 1.33. Physical exam: Patient was seen and fully evaluated at bedside this morning. He currently denies having any chest pain or discomfort, shortness of breath, dizziness, or having any further episodes of foul smells or syncopal episodes. Patient preparing to go down for cardiac stress test. Vital signs reviewed and stable. General: Nontoxic, no distress and appears stated age. Derm: Skin warm and dry, normal coloration for ethnicity. Head: Atraumatic, normocephalic and symmetric. Eyes: EOM's intact, no lid lag, and anicteric sclera Mouth: no lip lesions, mucus membranes moist Cardiovascular: regular rate and rhythm with normal S1S2, no murmur, positive posterior tibial pulses bilaterally, and cap refill < 2 seconds. Lungs: Respirations even, regular, and unlabored on room air. Lungs CTA bilaterally, no rhonchi, no rales, no wheezing, and no accessory muscle usage. Abdominal: soft, nontender to palpation, no guarding, no appreciable organomegaly Ext: ROM intact. No gross muscle atrophy, no edema, no contractures Neuro: Speech clear, face symmetrical and CN II-XII grossly intact with no noted focal neuro deficits Psych: Alert and oriented to person, place, time, and situation. Appropriate and pleasant affect. Assessment and Plan of Care: Recurrent syncopal episodes Exertional chest pain and shortness of breath -Patient reports syncopal episodes beginning in 2019 and states approximately 20 episodes or more over the past 4 years with all episodes beginning with reports of noting a foul smell. -Rule out cardiac etiology versus possible seizure as patient reports each episode began with foul smell. -Echocardiogram to be completed -EEG to be completed secondary to patient's reports of noticing a foul smell prior to syncopal episode -Cardiology following, discussed with cardiac MARKETING FINANCE SPECIALIST. -Troponins were trended resulting at 0.019, 0.027, 0.024. Lipid profile unremarkable.. -Patient to remain on continuous telemetry monitoring. -Continue daily aspirin 81 mg daily and atorvastatin 80 mg nightly. -Urine drug screen negative. -Chest x-ray negative for acute cardiopulmonary process. Hyperbilirubinemia -Improving from initial 2.8 down to 1.8 this morning with Conjugated bilirubin 0.37 and unconjugated bilirubin of 1.33.. -Unclear etiology, will continue to monitor. Lactic acidosis resolved. Data and imaging reviewed: -Vital signs reviewed. Blood pressure 99/50, heart rate 50, respiratory rate 16, temp 97.6 F, and SpO2 100% on room air. -Morning labs reviewed. CBC showing stable normocytic anemia with hemoglobin of 12.1. BMP unremarkable. Blood glucose 94. Liver profile unremarkable showing resolution of previous noted hyperbilirubinemia with morning bili of 1.2. Urine drug screen was negative. -Chest x-ray completed and reviewed and was negative for acute cardiopulmonary process. CODE STATUS: Full code DVT prophylaxis: SCDs Anticipated discharge date: Pending clinical course Anticipated discharge place: Home Patient was seen independently by Nurse Pracitioner. This document was prepared using [employer] dictation software. Please allow for errors in lead former, while rare they do occur. . I reviewed the documentation as provided by the ALYSSIA above, who is the original author of this note. I agree with the documented assessment and plan, with the following changes: none Objective - Vital Signs Vital signs: Vital Signs Temp 97.6 F 11/26/23 07:10 Pulse 50 L 11/26/23 07:10 Resp 16 11/26/23 07:10 BP 99/50 11/26/23 07:10 Pulse Ox 100 11/26/23 07:10 FiO2 Intake & Output 11/25/23 11/26/23 11/26/23 18:59 06:59 18:59 Other: # Voids 2 2 - Labs CBC & Chem 7: 11/26/23 04:38 11/26/23 04:38 Labs: Abnormal Lab Results - Last 24 Hours (Table) 11/25/23 11/25/23 11/25/23 Range/Units 03:53 09:25 09:25 Hgb 12.5 L (13.0-17.5) gm/dL Hct 38.7 L (39.0-53.0) % Chloride 110 H (98-107) mmol/L Total Bilirubin 1.7 H 1.8 H (0.3-1.2) mg/dL Unconjugated Bilirubin 1.33 H (0.20-1.00) mg/dL Total Protein 6.0 L (6.3-8.2) g/dL
--- NOTE | 2023-11-26 17:54 | CA ---
Transthoracic Echo Report Name: Sudhakar Lozada Age: 17 Gender: M : 2005 Exam Date: 11/26/2023 13:07 Exam Location: [place] Echo Ht (in): 68 Wt (lb): 140 Ordering Physician: Niles Graves DO Attending/Referring Phys: [id number], [place] Robotic Welder Zenaida Orlando RDCS Procedure CPT: Indications: Syncope Cardiac Hx: Technical Quality: Good Contrast 1: Total Dose (mL): Contrast 2: Total Dose (mL): MEASUREMENTS (Male / Female) Normal Values 2D ECHO LV Diastolic Diameter PLAX 4.4 cm 4.2 - 5.9 / 3.9 - 5.3 cm LV Systolic Diameter PLAX 3.2 cm IVS Diastolic Thickness 0.9 cm 0.6 - 1.0 / 0.6 - 0.9 cm LVPW Diastolic Thickness 1.1 cm 0.6 - 1.0 / 0.6 - 0.9 cm LV Relative Wall Thickness 0.5 RV Internal Dim ED PLAX 2.1 cm LA Systolic Diameter LX 3.1 cm 3.0 - 4.0 / 2.7 - 3.8 cm LV Diastolic Volume MOD BP 90.1 cm??? 67 - 155 / 56 - 104 cm??? LV Systolic Volume MOD BP 38.1 cm??? 22 - 58 / 19 - 49 cm??? LV Ejection Fraction MOD BP 57.7 % >= 55 % LV Cardiac Index MOD BP 1997.8 cm???/min???m??? LV Diastolic Volume MOD 4C 86.5 cm??? LV Systolic Volume MOD 4C 41.3 cm??? LV Ejection Fraction MOD 4C 52.2 % LV Cardiac Index MOD 4C 1736.2 cm???/min???m??? LV Diastolic Length 4C 7.6 cm LV Systolic Length 4C 7.1 cm LV Diastolic Volume MOD 2C 93.0 cm??? LV Systolic Volume MOD 2C 32.5 cm??? LV Ejection Fraction MOD 2C 65.1 % LV Cardiac Index MOD 2C 2326.8 cm???/min???m??? LV Diastolic Length 2C 7.5 cm LV Systolic Length 2C 6.6 cm M-MODE Aortic Root Diameter MM 3.1 cm LA Systolic Diameter MM 3.2 cm LA Ao Ratio MM 1.0 DOPPLER Mitral E Point Velocity 81.0 cm/s Mitral A Point Velocity 53.5 cm/s Mitral E to A Ratio 1.5 MV Deceleration Time 247.5 ms MV E' Velocity 9.1 cm/s Mitral E to MV E' Ratio 8.9 TR Peak Velocity 206.2 cm/s TR Peak Gradient 17.0 mmHg Right Ventricular Systolic Press 22.0 mmHg FINDINGS Left Ventricle Left ventricular ejection fraction is estimated at 55-60 %. Normal Left ventricular size, wall thickness, systolic function with no obvious regional wall motion abnormalities. Normal Left ventricular diastolic filling pattern. Right Ventricle Normal right ventricular size and function. Right ventricular systolic pressure within normal limits. Right Atrium Normal right atrial size. Left Atrium Normal left atrial size. Mitral Valve Structurally normal mitral valve. Mild mitral regurgitation. No mitral stenosis. Aortic Valve Trileaflet aortic valve. No aortic valve stenosis or regurgitation. Tricuspid Valve Structurally normal tricuspid valve. Mild tricuspid regurgitation. No tricuspid stenosis. Pulmonic Valve Structurally normal pulmonic valve. Trace to mild pulmonic regurgitation. No pulmonic stenosis. Pericardium No pericardial or pleural effusion. Aorta Normal size aortic root and proximal ascending aorta. CONCLUSIONS 1. Normal left ventricular size and systolic function 2. Mild mitral and tricuspid regurgitation Previewed by: Dr. Liyah Vanegas MD (Electronically Signed) Final Date: 26 November 2023 17:53
[2023-11-27 02:05] VITALS: PULSE 48
[2023-11-27 07:24] VITALS: BP 100/68; RESP 18; TEMP 98.1
--- NOTE | 2023-11-27 09:35 | CT ---
EXAMINATION TYPE: CT brain wo con DATE OF EXAM: 11/27/2023 COMPARISON: None HISTORY: eeg showing slowed response in occipital region CT DLP: 1167.[address] of the brain was performed. The ventricles, basal cisterns and sulci overlying the cerebral convexities demonstrate a normal appe arance. There is no evidence for intracranial hemorrhage or sulcal effacement. No mass effects are seen. Osseous calvarium is intact. If symptoms persist consider MRI as clinically warranted. IMPRESSION: 1. No acute intracranial process is seen at this time. [facility], , 11/27/2023 9:33 AM
--- NOTE | 2023-11-27 10:01 | P.DS ---
Providers Date of admission: 11/24/23 19:11 Expected date of discharge: 11/27/23 Attending physician: Joel Salinas MD Consults: 11/24/23 19:09 Consult Physician Urgent Consulting Provider: Ashutosh Hartman Consult Reason/Comments: syncope Do you want consulting provider notified?: Yes Primary care physician: Stated None Hospital Course: Discharge Diagnosis: Recurrent syncopal episodes. Patient was advised of [place] state law stating no driving until seizure-free/syncopal episode free for 6 months. Exertional chest pain and shortness of breath. Troponins were trended resulting at 0.019, 0.027, 0.024. Lipid profile unremarkable. Echocardiogram preserved EF of 55 to 60% with mild mitral and tricuspid regurgitation. Cardiac stress test was completed showing excellent exercise tolerance and normal electrocardiographic response to exercise with no evidence of of stress-induced ischemia or arrhythmia. Patient cleared from cardiology perspective for discharge recommending outpatient follow-up in their office in 1 week to discuss possible event monitor placement. Hyperbilirubinemia -Improving from initial 2.8 down to 1.8 this morning with Conjugated bilirubin 0.37 and unconjugated bilirubin of 1.33.. -Unclear etiology, will continue to monitor. Lactic acidosis resolved. Hospital course: Patient is a very pleasant 17-year-old male with a past medical history of recurrent syncopal episodes of unclear etiology. He presented to the emergency department on 11/24/2023 with a chief complaint of syncopal episode. 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 Patient reports approximately 20 syncopal episodes over the past 4 years and states all episodes began with a foul smell followed by feeling of lightheadedness and then syncope. No reports of convulsions or shaking activity, no biting of tongue and no involuntary loss of bowel or bladder reported from any of these events. Patient did report occasional chest pressure and shortness of breath with overexertion when playing soccer currently denies any complaints. Patient denies family history of heart disease or sudden cardiac before the age of 50. Upon arrival to our facility, patient underwent evaluation in the emergency department. Vital signs upon arrival show blood pressure 113/62, heart rate 72, respiratory rate 20, temp 98.5 F, and SpO2 100% on room air. EKG completed showing normal sinus rhythm at [address] depression in lead III and J-point elevation in leads I, aVL, V2 and V3. Completed and reviewed. CBC showing a low MCHC of 30.8 otherwise normal findings. Coagulation profile showing a low PTT of 20.1 otherwise normal findings. D-dimer was negative at 0.59. BMP unremarkable. Initial lactic acid 2.6. Magnesium 1.7. Total bili elevated at 2.8. Liver profile otherwise normal findings. Troponin 0.019. proBNP less than 20. TSH 0.607. Urine drug screen negative. Chest x-ray negative for acute cardiopulmonary process. Patient admitted under our services with consultation to cardiology. Troponins were trended resulting at 0.019, 0.027, 0.024. Repeat lactate showing r esolution of lactic acidosis with lactate of 1.0. Conjugated bilirubin 0.37 and unconjugated bilirubin of 1.33. Lipid profile unremarkable. Echocardiogram preserved EF of 55 to 60% with mild mitral and tricuspid regurgitation. Cardiac stress test was completed showing excellent exercise tolerance and normal electrocardiographic response to exercise with no evidence of of stress-induced ischemia or arrhythmia. Patient cleared from cardiology perspective for discharge recommending outpatient follow-up in their office in 1 week to discuss possible event monitor placement. Cardiology clearing patient to resume normal activity, soccer. EEG was completed and discussed findings with neurologist reading study, driver service technician stated EEG showing slowing and right a submental region but negative for epileptiform discharges or seizure activity. Neurologist recommended obtaining a CT brain and if negative may be discharged and follow-up outpatient with neurologist for prolonged EEG. CT brain was negative for acute intracranial process. Patient is very from any complaints or concerns at this time. He is eagerly awaiting discharge. Discussed findings with patient and recommendations for follow-up. Patient is scheduled for follow-up appointment outpatient in 2 days with residency clinic. Patient is medically stable for discharge at this time and to follow-up outpatient with PCP, cardiology, and neurologist as discussed. Medication changes were made. Physical exam: Vital signs reviewed and stable. General: Nontoxic, no distress and appears stated age. Derm: Skin warm and dry, normal coloration for ethnicity. Head: Atraumatic, normocephalic and symmetric. Eyes: EOM's intact, no lid lag, and anicteric sclera Mouth: no lip lesions, mucus membranes moist Cardiovascular: regular rate and rhythm with normal S1S2, no murmur, positive posterior tibial pulses bilaterally, and cap refill < 2 seconds. Lungs: Respirations even, regular, and unlabored on room air. Lungs CTA bilaterally, no rhonchi, no rales, no wheezing, and no accessory muscle usage. Abdominal: soft, nontender to palpation, no guarding, no appreciable organomegaly Ext: ROM intact. No gross muscle atrophy, no edema, no contractures Neuro: Speech clear, face symmetrical and CN II-XII grossly intact with no noted focal neuro deficits Psych: Alert and oriented to person, place, time, and situation. Appropriate and pleasant affect. A total of 35 minutes of time were spent preparing this complex discharge summary. Pt was discharged on 11/27/2023 at 9:59 AM. Patient was seen independently by Nurse Practitioner. This document was prepared using [employer] dictation software. Please allow for errors in wardrobe attendant while rare they do occur. I reviewed the documentation as provided by the ALYSSIA above, who is the original author of this note. I agree with the documented assessment and plan, with the following changes: none Patient Condition at Discharge: Stable Plan - Discharge Summary New Discharge Prescriptions: No Action No Known Home Medications Discharge Medication List No Known Home Medications 11/24/23 [History] Follow up Appointment(s)/Referral(s): Soto Kessler DO [STAFF PHYSICIAN] - 1 Week Macrina Barlow MD [REFERRING] - 11/29/23 9:00 am (Please schedule follow-uo appointment EUNICE, as you will need referral to neurologist for recommended prolonged EEG and possible MRI for further workup of recurrent syncopal episodes. ) Patient Instructions/Handouts: Syncope (DC) Activity/Diet/Wound Care/Special Instructions: Activity: As tolerated. You have been cleared by supervisor carding to play soccer. Diet: Regular diet. Special Instructions: You will need to schedule appointment with residency clinic within the next week, you will need a referral to a neurologist for recommended prolonged EEG and possible MRI for further workup of recurrent syncopal episodes. You will also need to follow up with cardiology in one week. As we discussed, [place] state law states no driving until seizure/syncopal episode free for 6 months. t is also important to avoid climbing ladders, operating dangerous or heavy machinery or unsupervised swimming until free from syncopal episode for 6 months. You are medically optimized and cleared to resume playing soccer. Thank you for allowing us to participate in your care, it was truly a pleasure having you for our patient!!! Discharge/Stand Alone Forms: Work/School Release Discharge Disposition: HOME SELF-CARE
--- NOTE | 2023-11-28 02:59 | EEG ---
ELECTROENCEPHALOGRAM REPORT CLINICAL HISTORY: This is a 17-year-old gentleman with recurrent syncopal episode and foul smell. The video EEG is obtained to evaluate for seizure epileptiform activity. RELEVANT MEDICATIONS: The patient is not on any antiseizure medications that is reported on EEG text report. EEG TYPE: This is a routine 21-channel EEG with video using the 10/20 electrode placement system. DESCRIPTION: Wakefulness and drowsiness are obtained. During awake state, the posterior- dominant rhythm consists of aez-ni-obwyfgie voltage of 10 hertz activity. There is no physiological stage 2 sleep architecture. There is focal slowing over the right occipital region consisting of delta/theta activity. Interictal and ictal is, there seems to be rare suspicious spike over the right temporal region with no clear discharges or seizure on the EEG. Photic stimulation, there is photic driving at 12 hertz activity. No abnormality during the photic stimulation. Hyperventilation is not performed. CLINICAL INTERPRETATION: This is an abnormal routine EEG. The background is normal. There is a focal slowing over the right occipital region suggestive of cerebral dysfunction in the involved region. There are suspicious rare spikes over the right occipital, which can cause cortical irritability. No clear epileptiform discharge, or seizure on the EEG. I highly recommend a repeat EEG, but this time to be done as a sleep-deprived and if negative, recommend a prolonged EEG as well to follow-up with neurologist as outpatient. Clinical correlation is recommended. ANDREI / JODY: [id number] / BELA
--- NOTE | 2023-11-30 18:14 | P.PN ---
Progress Note - Text Progress Note Date: 11/30/23 Regarding the abnormal routine EEG I contacted the patient's assistant golf coach (Ronald) whose number is on the contact on 11/27/2023 and he stated patient does not have an [place] number and he will have the patient contact me the next day at 1130 which will be 11/28/2023. I did not receive any calls. I tried reaching out to the patient's assistant golf coach on 11/28/2023 and received a voice message. I also attempted to contact the assistant golf coach today on 11/30/2023 at around 6 PM and again received a voice message. Will attempt again at a different day but I highly recommend the patient to follow-up with a neurologist soon as possible. From what it seems as if the patient was evaluated at where he is from regarding his recurrent syncopal episode and was on known to cause. Unsure if patient has seizures and I highly recommend a sleep deprived EEG or prolonged EEG. Also I think patient will benefit from antiseizure medication such as Keppra 500 mg twice daily especially with sharply contoured activity over the right occipital.
--- NOTE | 2023-12-02 17:16 | P.PN ---
Progress Note - Text Progress Note Date: 12/02/23 Again, I attempted to contact the patient today (12/02/2023) at around 5:11pm and called the available number on file which is Ronald Nevarez (his head girls golf coach) and received a voice message. I highly recommend the patient to follow-up with a neurologist as outpatient and I am concerned about his recurrent syncopal spells possible due to seizures. Possible it might be beneficial for patient to be on antiseizure medication if cardiac work-up is negative.
== END 2023-11-27 10:37 | disposition home or self-care (01) ==
LOC: EC 17:44 → 6NMEDSUR 19:11
PROVIDERS: ADMIT Internal Medicine; ATTEND Internal Medicine
DX: R55 Syncope and collapse (principal); E87.29 Other acidosis; R07.89 Other chest pain; R17 Unspecified jaundice
CPT/HCPCS: 96360; 96361 ×2; 99291; 36415; 95816; 93005; 93017; 93306; 85379; 83880; 80061; 80053 ×3; 82248; 83605 ×2; 83735 ×3; 84100; 84443; 84484 ×2; 85025; 85027 ×2; 85610; 85730; 81003; 80306; 71045; 70450; G0378 ×4